=== PATIENT | male | born 1950 | race Caucasian/White ===

== ENCOUNTER → 2020-01-18 | Outpatient (CLI) | payer OTHER, SELFPAY ==
--- NOTE | 2020-01-17 | LES_PTH ---
PATIENT: RENARD GONZALEZ LOC: [facility] U#:[id number] AGE/SX: 69/M ROOM: RE01/18/[address]: Dr. Sudhir Salazar MD : 1950 BED: DIS: 01/18/2020 SPEC #: [id number] RECD: 01/18/20 10:02 STATUS: PIETRO KADI #: [id number] NEGRA: 01/17/20 00:[address]: Sudhir Salazar DEPT: SURGICAL PATHOLOGY RECD BY: Araceli Staton ENTERED: 01/18/20 13:03 SP TYPE: Lesion OTHR DR: Dr. Griselda Cuevas, DO Tissues: Skin of eyelid, NOS Procedures: Surgery Specimen Level IV HEADER OPERATION: Left lower lid excisional biopsy PRE-OP DIAGNOSIS: Likely large inclusion cyst TISSUE SUBMITTED: Left lower lid lesion MICROSCOPIC DIAGNOSIS Left lower lid lesion, excisional biopsy: Epidermal inclusion cyst. STU:ernesto 01/21/20 MICROSCOPIC DESCRIPTION Slides are reviewed. GROSS DESCRIPTION Received in fixative is one container labeled with the patient's name and designated left lower lid. The specimen consists of one irregular fragment of light jean-baptiste soft tissue that measures 1 x 1 x 1 cm. The specimen is totally submitted in one cassette. The specimen is inked, serially sectioned and reveal a cyst filled with jean-baptiste-white cheesy material. The entire specimen is submitted in one cassette. / SJ:ernesto 01/18/20 TC:5 [facility]: [id number]
== END | disposition home or self-care (01) ==
LOC: LABSPEC 11:15
PROVIDERS: PCP Internal Medicine; Visit Provider Ophthalmology
DX: H02.825 Cysts of left lower eyelid (principal)
CPT/HCPCS: 88305

== ENCOUNTER → 2020-01-22 15:41 | Outpatient (CLI) | payer OTHER, SELFPAY ==
[2020-01-22 18:21] LABS: Anion Gap 3 (5-15); BUN 12 mg/dL (7-18); BUN/Creat Ratio 13.1 RATIO (10-20); Calcium,Total 8.9 mg/dL (8.5-10.1); Chloride 105 mmol/L (98-107); Cholesterol 195 mg/dL (200); Creatinine, Serum 0.91 mg/dL (0.70-1.30); EST Glomerular Filtration Rate 88 mL/min (>60); Est Glom Filt Rate - Afr Amer 106 mL/min (>60); Glucose 91 mg/dL (74-106); High Density Lipoprotein 49 mg/dL; PSA,Total - Annual Screen 0.45 ng/mL (0.00-4.00); Potassium 4.1 mmol/L (3.5-5.1); Sodium Level 141 mmol/L (136-145); Triglycerides 120 mg/dL; Very Low Density Lipoprotein 24 mg/dL (5-40)
== END ==
PROVIDERS: PCP Family Medicine; Referring Provider Family Medicine; Visit Provider Family Medicine
DX: Z00.00 Encounter for general adult medical examination without abnormal findings (principal)
CPT/HCPCS: 36415; 80048; 80061; 84153; G0103

== ENCOUNTER → 2020-03-31 | Outpatient (CLI) | payer OTHER, SELFPAY | END | disposition home or self-care (01) | PROVIDERS: PCP Family Medicine; Visit Provider Family Medicine | DX: U07.1 COVID-19 (principal); J06.9 Acute upper respiratory infection, unspecified | CPT/HCPCS: 87635; U0003 ==

== ENCOUNTER 2020-06-25 08:34 | Outpatient (RCR) | payer OTHER, SELFPAY | END 2020-06-25 23:59 | LOC: IMMUN 08:34 | PROVIDERS: PCP Family Medicine; Visit Provider Family Medicine | DX: Z23 Encounter for immunization (principal) | CPT/HCPCS: 0011A; 0012A ==

== ENCOUNTER 2021-06-03 08:14 | Outpatient (CLI) | payer OTHER, SELFPAY ==
--- NOTE | 2021-06-03 08:18 | CT_ITS ---
STUDY: CT TEMPORAL BONES WITHOUT CONTRAST - ATTN: I.A.C. S REASON FOR EXAM: Male, 71 years old. CHOLESTEATOMA OF RIGHT MIDDLE EAR RADIATION DOSAGE (If Supplied By Facility): CTDIvol = ( 67.58 ) mGy, DLP = ( 620.47 ) mGycm TECHNIQUE: The patient was scanned in a multi detector CT scanner. Transaxial imaging was performed. Sagittal and coronal images were reconstructed. Individualized dose optimization techniques were used for this CT. COMPARISON: None. FINDINGS: RIGHT TEMPORAL BONE Normal right internal auditory canal. There is no demonstrated enhancing abnormality. Normal visualized ossicles and tympanic cavity. Normal right cochlea and semicircular canals. Normal vestibular aqueduct. Normal right petrous carotid artery. Normal right jugular fossa. Normal right mastoid air cells. Normal right petrous apex. LEFT TEMPORAL BONE Normal left internal auditory canal. There is no demonstrated enhancing abnormality. Soft tissue density is seen within the middle ear cavity. This encases the middle ear ossicles. This is in keeping with the cholesteatoma. Normal left cochlea and semicircular canals. Normal vestibular aqueduct. Normal left petrous carotid artery. Normal right jugular fossa. There are extensive inflammatory changes of the left mastoid air cells consistent with severe chronic otomastoiditis. Normal left petrous apex. CT/Orb Sella Post Fossa Ear w/o IMPRESSION: Opacification of the left mastoid air cells with soft tissue density in the left middle ear cavity involving the ossicles as described. This is in keeping with the cholesteatoma. Electronically Signed: Radames Curtis MD at 9:13 EST ,
== END 2021-06-03 23:59 | disposition short-term general hospital (02) ==
PROVIDERS: PCP Family Medicine; Referring Provider Otolaryngology; Visit Provider Otolaryngology
DX: H60-H95 Diseases of the ear and mastoid process (principal)
CPT/HCPCS: 70480

== ENCOUNTER → 2023-04-04 | Outpatient (CLI) | payer OTHER, SELFPAY | END | disposition home or self-care (01) | LOC: MFPLAB 13:38 | PROVIDERS: PCP Family Medicine; Visit Provider Family Medicine | DX: Z12.5 Encounter for screening for malignant neoplasm of prostate (principal) | CPT/HCPCS: 36415; 84153; G0103 ==